=== PATIENT | male | born 1950 | race Caucasian/White ===

== ENCOUNTER 2018-10-17 09:53 | Outpatient (CLI) | payer MEDICARE ==
[2014-05-29 12:18] VITALS: BP 110/78
[2018-10-17] MEDS ORDERED: DENOSUMAB (NF) 60 MG/ML SYRINGE SQ ONE (18:00)
== END 2018-10-17 10:30 ==
LOC: INF 09:53
PROVIDERS: ATTEND Nurse Practitioner Family
DX: M81.0 Age-related osteoporosis without current pathological fracture (principal)
CPT/HCPCS: 96372; J0897

== ENCOUNTER 2019-04-15 14:13 | Outpatient (CLI) | payer MEDICARE, OTHER ==
[2019-01-20 01:24] VITALS: BP 110/78
[2019-04-15 15:12] LABS: SEGMENTED NEUTROPHILS % 83 % (39-79)
== END 2019-04-15 14:15 ==
LOC: LAB 14:13
PROVIDERS: ATTEND Nurse Practitioner Family
DX: D72.829 Elevated white blood cell count, unspecified (principal)
CPT/HCPCS: 36415; 85025

== ENCOUNTER 2019-04-17 14:06 | Outpatient (CLI) | payer MEDICARE, OTHER ==
[2014-05-29 12:18] VITALS: BP 110/78
[2019-04-17] MEDS ORDERED: DENOSUMAB (NF) 60 MG/ML SYRINGE SQ ONE (15:00)
== END 2019-04-17 14:26 | disposition home or self-care (01) ==
LOC: INF 14:06
PROVIDERS: ATTEND Nurse Practitioner Family
DX: M81.0 Age-related osteoporosis without current pathological fracture (principal)
CPT/HCPCS: J0897